=== PATIENT | male | born 1955 | race Caucasian/White ===

== ENCOUNTER → 2021-02-10 | Outpatient (CLI) | payer MEDICARE, MEDICAID ==
[~2021-02-10] MED LIST: ALFU10TA PO; LOSA50TA14 PO
[2021-02-10 15:12] LABS: ALBUMIN 3.8 g/dL (3.4-5.0); ANION GAP 5 mmol/L (5-15); CHLORIDE 105 mmol/L (98-107)
[2021-02-10 15:14] LABS: MICROSCOPIC INDICATED
[2021-02-10 15:15] LABS: ALANINE AMINOTRANSFERASE 40 U/L (12-78); ALKALINE PHOSPHATASE 58 U/L (45-117); BILIRUBIN,TOTAL 0.4 mg/dL (0.2-1.0); CREATININE 0.91 mg/dL (0.7-1.3); TOTAL PROTEIN 7.2 g/dL (6.4-8.2)
== END | disposition home or self-care (01) ==
LOC: STAR 13:56
PROVIDERS: ATTEND Urology
DX: Z01.818 Encounter for other preprocedural examination (principal); N32.89 Other specified disorders of bladder; I44.0 Atrioventricular block, first degree; I51.7 Cardiomegaly; Z20.822 Contact with and (suspected) exposure to COVID-19
CPT/HCPCS: 36415; 80053; 81001; 87086; 93005; U0003; U0005

== ENCOUNTER 2021-02-16 09:43 | Day surgery (SDC) | payer MEDICARE, MEDICAID ==
[~2021-02-16] VITALS: Ht 188 cm; Wt 93.3 kg
[2021-02-16 10:11] VITALS: BP 144/88
[2021-02-16] MEDS ORDERED: LACTATED RINGERS 1,000 ML IV SCH (10:30)
[2021-02-16] MEDS ORDERED: CHLORHEXIDINE 15 ML UDC PO ONE (10:30)
[2021-02-16] MEDS ORDERED: FENTANYL PF 100 MCG/2ML ONE ×2 (11:04→11:44)
[2021-02-16] MEDS ORDERED: GLYCOPYRROLATE 0.2MG/1ML, 5ML ONE (11:05)
[2021-02-16] MEDS ORDERED: DEXAMETHASONE 4 MG/ML, 1ML ONE (11:05)
[2021-02-16] MEDS ORDERED: NEOSTIGMINE 1 MG/ML, 10ML ONE (11:05)
[2021-02-16] MEDS ORDERED: ROCURONIUM 10MG/ML,5ML ONE (11:05)
[2021-02-16] MEDS ORDERED: ONDANSETRON 2MG/ML, 2ML ONE (11:05)
[2021-02-16] MEDS ORDERED: SUCCINYLCHOLINE 20 MG/ML, 10ML ONE (11:05)
[2021-02-16] MEDS ORDERED: PROPOFOL 10 MG/ML, 20ML ONE (11:05)
[2021-02-16] MEDS ORDERED: CEFAZOLIN 1,000 MG ONE (11:05)
[2021-02-16] MEDS ORDERED: GEMCITABINE HCL 1,000 MG in SODIUM CHLORIDE 0.9% 23.7 ML IS ONE (11:30)
[2021-02-16] MEDS ORDERED: ACETAMINOPHEN 325 MG TABLET PO PRN (12:00)
[2021-02-16] MEDS ORDERED: DIAZEPAM 5 MG/ML, 2ML IVPush PRN (12:00)
[2021-02-16] MEDS ORDERED: LABETALOL 5MG/ML, 20ML IV PRN (12:00)
[2021-02-16] MEDS ORDERED: MEPERIDINE/PF 25MG/0.5ML IVPush PRN (12:00)
[2021-02-16] MEDS ORDERED: HYDROmorphone 2 MG/ML, 1ML IVPush PRN (12:00)
[2021-02-16] MEDS ORDERED: ONDANSETRON 2MG/ML, 2ML IV PRN (12:00)
[2021-02-16] MEDS ORDERED: ALBUTEROL SULFATE 2.5 MG/3 ML NPPB PRN (12:00)
[2021-02-16] MEDS ORDERED: hydrALAzine 20 MG/ML, 1ML IV PRN (12:00)
[2021-02-16] MEDS ORDERED: PROMETHAZINE 25 MG/ML, 1ML IV PRN (12:00)
[2021-02-16] MEDS ORDERED: KETOROLAC 30 MG/1 ML IV PRN (12:00)
[2021-02-16] MEDS ORDERED: OXYcodone 5 MG/5 ML ORAL.SOL UDC PO PRN (12:00)
[2021-02-16] MEDS ORDERED: HYDROcodone/APAP 5/325 TABLET PO PRN (12:00)
[2021-02-16] MEDS ORDERED: FENTANYL PF 100 MCG/2ML IV PRN (12:00)
[2021-02-16] MEDS ORDERED: PHENAZOPYRIDINE 200 MG TABLET ONE (13:59)
[2021-02-16] MEDS ORDERED: PHENAZOPYRIDINE 200 MG TABLET PO PRN (14:00)
== END 2021-02-16 14:05 | disposition home or self-care (01) ==
LOC: OUT 09:43
PROVIDERS: ATTEND Urology
DX: D49.4 Neoplasm of unspecified behavior of bladder (principal); D09.0 Carcinoma in situ of bladder; N30.80 Other cystitis without hematuria; I10 Essential (primary) hypertension; Z79.899 Other long term (current) drug therapy; Z88.2 Allergy status to sulfonamides; Z88.8 Allergy status to other drugs, medicaments and biological substances
CPT/HCPCS: 51720; 52234; 88305; J0330; J0690; J1100; J2405; J2704; J2710; J3010; J7120